=== PATIENT | male | born 1935 | race Two or more races ===

== ENCOUNTER 2020-06-13 07:20 | Outpatient (CLI) | payer OTHER | END 2020-06-13 07:27 | disposition home or self-care (01) | LOC: TOM 07:20 | PROVIDERS: ATTEND Internal Medicine Gastroenterology | DX: K56.690 Other partial intestinal obstruction (principal); R19.5 Other fecal abnormalities ==

== ENCOUNTER 2020-06-15 09:09 | Outpatient (CLI) | payer OTHER | END 2020-06-15 09:16 | disposition home or self-care (01) | LOC: RX STUDY 09:09 | PROVIDERS: ATTEND Internal Medicine Gastroenterology | DX: R19.5 Other fecal abnormalities (principal); R10.13 Epigastric pain ==